=== PATIENT | female | born 1995 | race African-American/Black ===

== ENCOUNTER 2016-11-24 15:02 | Emergency (ER) | payer OTHER ==
[2016-11-24] MEDS ORDERED: ONDANSETRON 4 MG VIAL ONE (17:22)
[2016-11-24] MEDS ORDERED: SODIUM CHLORIDE 0.9% 1,000 ML ONE (17:22)
== END 2016-11-24 19:02 | disposition home or self-care (01) ==
LOC: ER 15:02
CPT/HCPCS: 36415 ×2; 76817 ×2; 96361 ×2; 96374 ×2; 99284; J2405

== ENCOUNTER 2016-12-03 16:15 | Emergency (ER) | payer OTHER ==
[2016-12-03] MEDS ORDERED: ONDANSETRON 4 MG VIAL ONE (20:37)
[2016-12-03] MEDS ORDERED: SODIUM CHLORIDE 0.9% 1,000 ML ONE (20:37)
[2016-12-03] MEDS ORDERED: CEFTRIAXONE 1 GM VIAL ONE (21:21)
[2016-12-03] MEDS ORDERED: SODIUM CHLORIDE 0.9% 100 ML IV ONE (21:21)
== END 2016-12-03 22:00 | disposition home or self-care (01) ==
LOC: ER 16:15
DX: N30.01 Acute cystitis with hematuria (principal); O21.1 Hyperemesis gravidarum with metabolic disturbance; Z79.899 Other long term (current) drug therapy
CPT/HCPCS: 36415 ×2; 80053 ×2; 81001 ×2; 83690 ×2; 84702 ×2; 85025 ×2; 87088 ×2; 96361 ×2; 96374 ×2; 96375 ×2; 99283; J0696; J2405

== ENCOUNTER 2016-12-16 16:22 | Emergency (ER) | payer OTHER ==
[2016-12-16] MEDS ORDERED: ONDANSETRON 4 MG VIAL ONE (17:29)
[2016-12-16] MEDS ORDERED: SODIUM CHLORIDE 0.9% 1,000 ML ONE ×2 (17:29→18:40)
[2016-12-16] MEDS ORDERED: SODIUM CHLORIDE 0.9% 100 ML IV ONE (18:40)
[2016-12-16] MEDS ORDERED: CEFTRIAXONE 1 GM VIAL ONE (18:40)
== END 2016-12-16 20:11 | disposition home or self-care (01) ==
LOC: ER 16:22
DX: N30.00 Acute cystitis without hematuria (principal); Z33.1 Pregnant state, incidental
CPT/HCPCS: 36415; 80053; 81001; 83690; 84702; 85025; 87088; 96361; 96365; 96375; 99283; J0696; J2405